=== PATIENT | female | born 1955 | race Hispanic/Latino ===

== ENCOUNTER 2019-01-21 09:16 | Emergency (ER) | payer MEDICARE, OTHER ==
[~2019-01-21] VITALS: Ht 154.9 cm; Wt 77.1 kg
[~2019-01-21 09:16] MED LIST: AMBIEN; AMBIEN10 MG PO; BACTRIM; CLONIDINE; CLONIDINE HCL0.1 MG PO; DIAZEPAM5 MG PO; DIPHENOXYLATE-1 EACH PO; FENOFIBRATE67 MG PO; FENTANYL; GABAPENTIN400 MG PO; HYDROCODONE; LANTUS; METOPROLOL; NOVOLOG; PHENERGAN; PROMETHAZINE HC25 M1 PO; SERTRALINE HCL100 MG PO; TIZANIDINE HCL4 MG PO; ULTRAM50 MG PO; VISTARIL; VOLTAREN; XANAX; ZANAFLEX; ZOLOFT
--- OUTSIDE RECORDS SUMMARY | 2019-01-21 09:20 | XMS REPORT | Continuity of Care Document ---
Author Author [facility] Interface Address Unknown Phone Unavailable Problems Problem Status Onset Date Classification Date Reported Comments Source M54.14 - "RADICULOPATHY, THORACIC REGION Active 02/07/2017 MARCELA Perales LT AXILLA DEODORENT? (SEE CALLBACK FORM) Active 04/22/2013 [facility] ROUTINE SCREENING Active 04/07/2013 [facility] CIRRHOSIS Active 01/20/2013 [facility] CIRRHOSIS OF LIVER NOS Active [facility] Medications Medication Details Route Status Patient Instructions Ordering Provider Order Date Source Allergies, Adverse Reactions, Alerts Substance Category Reaction Severity Reaction type Status Date Reported Comments Source Immunizations Immunization Date Given Site Status Last Updated Comments Source Results Order Name Results Value Reference Range Date Interpretation Comments Source Spine Thoracic wo contrast MRI Spine Thoracic wo contrast MRI MRI thoracic spine without contrast 02/14/2017 3:42 PM CDT CLINICAL: Thoracic spine pain TECHNIQUE: Sagittal T1, sagittal T2 with fat saturation, axial T1 and axial T2 images were obtained. COMPARISON: No prior exam. FINDINGS: Mild levocurvature of the thoracic spine is present. T7-T8 and T8-T9 1 mm disc bulges are seen, without cord indentation. Several levels of mild facet arthrosis present in the upper to mid thoracic spine, more prominent on the right with several levels of mild right foraminal stenosis. The thoracic spinal cord signal is normal. IMPRESSION: 1. 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 No focal disc herniation. Normal thoracic cord signal. 02/14/2017 - - Read by: Liam Chris MD Dictated Date/time: 02/15/17 08:27 Electronically Signed by: Liam Chris MD 02/15/17 08:33 FINAL REPORT RAMIREZ Perales Knee 3 views DX Knee 3 views DX EXAMINATION: Left knee series HISTORY: S83.92XA Sprain of unspecified site of left knee, initial encounter; left knee pain; left knee arthritis; left knee effusion FINDINGS: 3 views of the left knee are performed without comparison. There are no fractures. There is mild medial compartment joint space narrowing. The lateral and patellofemoral joint spaces are normal. There is a small knee effusion. IMPRESSION: 1. Mild medial compartment joint space narrowing of the left knee with a small left knee effusion. 12/24/2016 - - Read by: Mike Dolan MD Dictated Date/time: 12/24/16 14:01 Electronically Signed by: Mike Dolan MD 12/24/16 14:02 FINAL REPORT [facility] [place] Digital Mammo Screening Audrey MA Digital Mammo Screening Audrey MA - DIGITAL MAMMO SCREENING AUDREY MA BILATERAL DIGITAL SCREENING MAMMOGRAM WITH CAD: 04/17/2013 CLINICAL: Other Screening Mammogram. Current study was evaluated with a Computer Aided Detection (CAD) system. Exam is read without the benefit of comparison films. Patient is unsure and/or cannot remember where and/or when her prior exam(s) was performed. The tissue of both breasts is predominantly fatty. There are benign appearing calcifications in both breasts. There also is a benign appearing density in the right breast. Additionally there are benign appearing lymph nodes in the right breast. There also is a benign appearing intramammary node in the left breast. Additionally there are benign appearing densities in the left breast. No significant masses, calcifications, or other findings are seen in either breast. IMPRESSION: BENIGN There is no mammographic evidence of malignancy. A screening mammogram in one year is recommended. SUMMARY: Prior mammograms would be of added benefit to document group home stability. This aids in establishing benignity. The patient should make additional efforts to locate her prior exams. An addendum will be made if additional films are provided. SL: 13. Malachi jeter/:04/29/2013 10:16:57 Channel Sales Manager: Brittney Medley [facility] letter sent: Bilateral Benign Mammogram BI-RADS: 2 Benign 04/17/2013 - - Read by: Malachi Nicole Dictated Date/time: 04/29/13 10:16 Electronically Signed by: Malachi Nicloe MD 04/29/13 10:16 FINAL REPORT [facility] Pel[facility] with Pelvis Transvaginal US Pelvis with Pelvis Transvaginal US Pelvic ultrasound. COMPARISON: No priors. TECHNIQUE: Multiple static transabdominal images of the pelvis are submitted for review. FINDINGS: The uterus measures approximately 8 cm in the sagittal length. No focal masses are evident on the transabdominal study. Neither ovary is optimally visualized on the transabdominal study. The bladder is grossly unremarkable in appearance. TRANSVAGINAL ULTRASOUND: TECHNIQUE: Multiple static transvaginal images of the pelvis are submitted for review. FINDINGS: At least 3 intramural fibroids are visualized ranging in is from 1.3 cm to 2.7 cm. Their located anteriorly and posteriorly in the body of the uterus. The endometrial stripe measures 8 mm. The right ovary measures 2.6 x 1.2 x 1.7 cm in size, and the left ovary measures 2.5 x 1.9 x 1.8 cm in size. Ovary is not well demonstrated. No free fluid is present in the cul-de-sac. IMPRESSION: Multiple small intramural fibroids are visualized in the uterus. Limited evaluation of left ovary. No other significant sonographic abnormality is noted. SL:04/17/2013 - - Read by: To Escamilla Dictated Date/time: 04/17/13 16:56 Electronically Signed by: To Escamilla MD 04/17/13 17:00 FINAL REPORT [facility] complete US Abdomen complete US PROCEDURE: Complete abdominal ultrasound. INDICATION: cirrhosis. COMPARISON: [None]. FINDINGS: The pancreas is not visualized in its entirety. There is no mass lesion in the visualized pancreas. The liver is enlarged measuring 19.8 cm. The liver is heterogeneous in echotexture with nodular contour. This lowers the sensitivity for diagnostic evaluation of hepatic mass. Nonvisualization of the gallbladder presumably post cholecystectomy. The common bile duct measures [4.0] mm in diameter. There is no stone visualized in the common bile duct. The right kidney measures 9.8 cm x 4.8 cm x 4.5 cm. The left kidney measures 11.1 cm x 6.0 cm x 4.2 cm. There is no mass lesion or hydronephrosis in either kidney . The spleen has normal echogenicity without any mass lesion. The spleen measures 10.5 cm. There is no free fluid visualized. The visualized abdominal aorta and inferior vena cava are unremarkable. IMPRESSION: 1. Presumed post cholecystectomy. Grossly normal common bile duct. 2. Hepatocellular disease likely cirrhosis. SL: 13 01/30/2013 - - Read by: Damien Estrada Dictated Date/time: 01/30/13 14:17 Electronically Signed by: Damien Estrada MD 01/30/13 14:19 FINAL REPORT [facility] Vital Signs Vital Sign Value Date Comments Source Encounters Location Location Details Encounter Type Encounter Number Reason For Visit Attending Provider ADM Date DC Date Status Source [facility] Outpatient [id number] CIRRHOSIS REED ROCHADAD 01/30/2013 01/30/2013 Active [facility] Outpatient [id number] ROUTINE SCREENING KAELA CARVER 04/17/2013 04/17/2013 Active [facility] [place] [facility] [id number] Hector Kim 12/24/2016 12/25/2016 [facility] [place] [facility] [place] [facility] [id number] Serenity Benton II 02/14/2017 02/15/2017 [facility] [place] [facility] Outpatient [id number] LT AXILLA DEODORENT? (SEE CALLBACK FORM) KAELA CARVER Cancel [facility] Procedures Procedure Code Date Perfomer Comments Source
--- OUTSIDE RECORDS SUMMARY | 2019-01-21 09:20 | XMS REPORT | Summary of Care ---
Author Author [facility] [place] Organization [facility] [place] Address Unknown Phone Unavailable Encounter [facility] Encntr_alias(FIN) [id number] Date(s): 02/14/17 - 02/14/17 [facility] [place] [address] [phone] Discharge Disposition: Home or Self Care Attending Physician: Serenity Gaytan MD Vital Signs No data available for this section Problem List No data available for this section Allergies, Adverse Reactions, Alerts No data available for this section Medications No data available for this section Results No data available for this section Immunizations No data available for this section Procedures No data available for this section Social History No data available for this section Assessment and Plan No data available for this section
--- OUTSIDE RECORDS SUMMARY | 2019-01-21 09:20 | XMS REPORT | Summary of Care ---
Author Author [facility] - [place] Organization [facility] [place] Address Unknown Phone Unavailable Encounter [facility] Encntr_alias(FIN) [id number] Date(s): 12/24/16 - 12/24/16 [facility] Outpatient Imaging - [place] [address] [place] [phone] Discharge Disposition: Home or Self Care Attending Physician: Hector Kim MD Vital Signs No data available for [...]
--- OUTSIDE RECORDS SUMMARY | 2019-01-21 09:21 | XMS REPORT ---
[facility] Address Unknown Phone Unavailable Care Team Providers Care Cathead Operator Name Role Phone Unavailable Unavailable Payers Payer Name Policy Type Policy Number Effective Date Expiration Date Problems This patient has no known problems. Allergies, Adverse Reactions, Alerts Allergy Name Allergy Type Status Severity Reaction(s) Onset Date Inactive Date Treating Clinician Comments NSAIDS (Non-Steroidal Anti-Inflamma DA Active U 2019-01-08 00:00:00 iodine DA Active HI 2019-01-08 00:00:00 divalproex sodium DA Active U 2019-01-08 00:00:00 methocarbamol DA Active HI 2019-01-08 00:00:00 baclofen DA Active HI 2019-01-08 00:00:00 gabapentin DA Active U 2019-01-08 00:00:00 promethazine DA Active 2019-01-08 00:00:00 methylphenidate DA Active HI 2019-01-08 00:00:00 cyclobenzaprine DA Active U 2019-01-08 00:00:00 ondansetron DA Active U 2019-01-08 00:00:00 pregabalin DA Active U 2019-01-08 00:00:00 promethazine DA Active SV 2018-09-07 00:00:00 NSAIDS (Non-Steroidal Anti-Inflamma DA Active U 2018-09-04 00:00:00 iodine DA Active MO 2018-09-04 00:00:00 divalproex sodium DA Active U 2018-09-04 00:00:00 methocarbamol DA Active MO 2018-09-04 00:00:00 baclofen DA Active MO 2018-09-04 00:00:00 gabapentin DA Active U 2018-09-04 00:00:00 methylphenidate DA Active MO 2018-09-04 00:00:00 cyclobenzaprine DA Active U 2018-09-04 00:00:00 ondansetron DA Active U 2018-09-04 00:00:00 pregabalin DA Active U 2018-09-04 00:00:00 NSAIDS (Non-Steroidal Anti-Inflamma DA Active U 2018-04-13 00:00:00 iodine DA Active MO 2018-04-13 00:00:00 divalproex sodium DA Active U 2018-04-13 00:00:00 methocarbamol DA Active MO 2018-04-13 00:00:00 baclofen DA Active MO 2018-04-13 00:00:00 gabapentin DA Active U 2018-04-13 00:00:00 methylphenidate DA Active MO 2018-04-13 00:00:00 ondansetron DA Active U 2018-04-13 00:00:00 pregabalin DA Active U 2018-04-13 00:00:00 Medications This patient has no known medications. Results Test Description Test Time Test Comments Text Results Atomic Results Result Comments BASIC METABOLIC PANEL 2019-01-08 21:20:00 SODIUM (test code=NA) 142 mmol/L 136-145 POTASSIUM (test code=K) 3.3 mmol/L 3.5-5.1 CHLORIDE (test code=CL) 107.0 mmol/L 98-107 CARBON DIOXIDE (test code=CO2) 27.0 mmol/L 21-32 ANION GAP (test code=GAP) 11.3 10-20 GLUCOSE (test code=GLU) 80 mg/dL 74-106 BLOOD UREA NITROGEN (test code=BUN) 6 mg/dL 7-18 GLOMERULAR FILTRATION RATE (test code=GFR) > 60 mL/min >=60 Estimated GFR by using Modified MDRD formula.Chronic kidney disease is defined as either kidney damageor GFR <60 mL/min/1.73 m2 for >3 months. CREATININE (test code=CREAT) 0.80 mg/dL 0.55-1.02 Note change in reference range due to change in reagent. BUN/CREATININE RATIO (test code=BUN/CREA) 7.5 10-20 CALCIUM (test code=CA) 8.6 mg/dL 8.5-10.1 [id number] 21:20:00* Test Item Value Reference Range Comments TROPONIN-I (test code=TROPI) <0.015 ng/mL 0-0.045 BASIC METABOLIC [id number] 21:18:00* Test Item Value Reference Range Comments SODIUM (test code=NA) 142 mmol/L 136-145 POTASSIUM (test code=K) 3.3 mmol/L 3.5-5.1 CHLORIDE (test code=CL) 107.0 mmol/L 98-107 CARBON DIOXIDE (test code=CO2) mmol/L 21-32 ANION GAP (test code=GAP) 10-20 GLUCOSE (test code=GLU) mg/dL 74-106 BLOOD UREA NITROGEN (test code=BUN) mg/dL 7-18 GLOMERULAR FILTRATION RATE (test code=GFR) mL/min >=60 CREATININE (test code=CREAT) mg/dL 0.55-1.02 BUN/CREATININE RATIO (test code=BUN/CREA) 10-20 CALCIUM (test code=CA) mg/dL 8.5-10.1 [id number] 21:18:00* Test Item Value Reference Range Comments TROPONIN-I (test code=TROPI) ng/mL 0-0.045 CBC W/O [id number] 21:06:00* Test Item Value Reference Range Comments WHITE BLOOD CELL (test code=WBC) 7.7 K/mm3 4.5-12.5 RED BLOOD CELL (test code=RBC) 3.69 mill/mm3 3.7-5.2 HEMOGLOBIN (test code=HGB) 10.6 gram/dL 11.5-15.5 HEMATOCRIT (test code=HCT) 34.2 % 36.0-46.0 MEAN CELL VOLUME (test code=MCV) 92.7 fL 80-98 MEAN CELL HGB (test code=MCH) 28.7 picogram 27.0-33.0 MEAN CELL HGB CONCETRATION (test code=MCHC) 31.0 gram/dL 33.0-36.0 RED CELL DISTRIBUTION WIDTH (test code=RDW) 15.0 % 11.6-16.2 PLATELET COUNT (test code=PLT) 111 K/mm3 150-450 MEAN PLATELET VOLUME (test code=MPV) 11.3 fL 6.7-11.0 TROPONIN I [id number] 21:02:00* Test Item Value Reference Range Comments TROPONIN I RAPID (test code=TROPIRAP) 0.01 ng/mL <0.08 Please Note New Reference Range 0.00-0.079 ng/mL - Negative>or=0.08 ng/mL - Positive The use of serial sampling and testing protocol is arecommended practice.An elevated troponin level alone is often not sufficient fordiagnosis of myocardial infarction. Troponin results obtained by different assays may vary.Evaluation of the extent of myocardial damage based onincrease of troponin would be valid only if similarmethodology is used. - XR CHEST 1 [id number] 20:12:00 FAX: Jac Willoughby MD [phone] [place]: St: PRE FAX: Hector Kim [facility] [phone] Name: YUMI HANLEY [facility] : 1955 Age/S: 63/F [address] Unit #: [id number] Loc: [place] [address] Phys: Jac Willoughby MD Acct: [id number] Dis Date: Status: PRE ER PHONE #: [phone] Exam Date: 01/08/2019 0759 FAX #: [phone] Reason: fall EXAMS: CPT CODE: [id number] XR CHEST 1 V [id number] REASON FOR EXAM: fall EXAM ORDER DATE: 01/08/2019 7:39 PM Ordering M.DTomas: Jac Willoughby MD PROCEDURE: - XR CHEST 1 V COMPARISON: FINDINGS: Portable AP frontal view of the chest obtained at 7:57 PM shows clear lungs without evidence of consolidation. There is no evidence of effusion. The heart size is minimally enlarged. Pulmonary vasculatures are unremarkable. IMPRESSION: No active disease. at 2011 Reported and signed by: Jean Sánchez M.D. CC: Jac Willoughby MD; Hector Kim Technologist: ESTEPHANIE RAVI; Lars Fonseca, RT(R Trnscrd Date/Time/By: 01/08/2019 (2011) : By: Brandi.VTL PAGE 1 Signed Report - XR RIBS UNI 2 V LT 2019-01-08 20:11:00 FAX: Jac Willoughby MD [phone] [place]: St: PRE FAX: Hector Kim [phone] Name: YUMI HANLEY [facility] : 1955 Age/S: 63/F [address] Unit #: [id number] Loc: [place] [address] Phys: Jac Willoughby MD Acct: [id number] Dis Date: Status: PRE ER PHONE #: [phone] Exam Date: 01/08/2019 0759 FAX #: [phone] Reason: fall EXAMS: CPT CODE: [id number] XR RIBS UNI 2 V LT [address]167 REASON FOR EXAM: fall EXAM ORDER DATE: 01/08/2019 7:39 PM Ordering Prabhu: Jac Willoughby MD PROCEDURE: - XR RIBS UNI 2 V LT FINDINGS: 2 views of the frontal view of the chest and left ribs were obtained. The osseous structures are unremarkable in size and shape. No evidence of pneumothorax or hemothorax. No evidence of displaced rib fracture. IMPRESSION: Unremarkable left ribs at 2011 Reported and signed by: Jean Sánchez M.D. CC: Jac Willoughby MD; Hector Kim Technologist: ESTEPHANIE RAVI; RENETTA HaleyR Trnscrd Date/Time/By: 01/08/2019 (2010) : By: AnayeliVTL Orig Print D/T: S: 01/08/2019 (2013) PAGE 1 Signed Report - CT ABD PELVIS W/O [id number] 19:21:00 Name: YUMI HANLEY [facility] : 1955 Age/S: 63 / F [address] Unit #: [id number] Loc: [place] [address] Phys: MIGUEL DAVID MD Acct: [id number] Di s Date: Status: REG ER PHONE #: [phone] Exam Date: 12/28/2018 190 FAX #: [phone] Reason: abdominal pain, Hx of IBD EXAMS: CPT CODE: [id number] CT ABD PELVIS W/O CONT [id number] EXAM: CT of the abdomen a nd pelvis without contrast; INFORMATION: Abdominal pain, history o f inflammatory bowel disease. TECHNIQUE AND FINDINGS: CT dos e reduction protocol; 5 mm cuts through the abdomen and pelvis without con trast. No evidence of inflammatory changes of the colon or small bowel. The liver is of normal size. It shows a micronodular surface. No foc al lesions. The gallbladder is not seen; no biliary dilatation. Panc reas, spleen and kidneys unremarkable. No hydronephrosis or stones. Tubular nodular structures are seen in the region of the left adrenal gla nd is suspected this is a combination of a small adrenal nodule and probab le varices, potentially with spontaneous splenorenal shunt. Calcified plaq ues in the abdominal aorta and iliac arteries. No pelvic mass lesions No evidence of ascites or other abnormal fluid collections. Lung bases a re clear. IMPRESSION: 1. No acute abdominal or pelvic a bnormalities. 2. 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 3. Prob able small left adrenal gland, difficult to distinguish from a varix wit hout the benefit of IV contrast. 4. No evidence of active inflammatory bowel disease. at 1921 Reported and signed by: Lambert Borges M.D. CC: CHERIE DAVID; Hector Kim Technologist:Jeronimo León RT(R)( CT) CTDI: DLP: Trnscb Date/Time: 12/28/2018 (1920) AnayeliGRW Orig Print D/T: S: 12/28/2018 (1923) CTDI: DLP: PAGE 1 Signed Report C REACTIVE [id number] 18:43:00* Test Item Value Reference Range Comments C REACTIVE PROTEIN (test code=CRP) <0.29 mg/dL 0-0.3 BASIC METABOLIC [id number] 17:39:00* Test Item Value Reference Range Comments SODIUM (test code=NA) 141 mmol/L 136-145 POTASSIUM (test code=K) 3.8 mmol/L 3.5-5.1 CHLORIDE (test code=CL) 108.0 mmol/L 98-107 CARBON DIOXIDE (test code=CO2) 23.0 mmol/L 21-32 ANION GAP (test code=GAP) 13.8 10-20 GLUCOSE (test code=GLU) 129 mg/dL 74-106 BLOOD UREA NITROGEN (test code=BUN) 9 mg/dL 7-18 GLOMERULAR FILTRATION RATE (test code=GFR) 56 mL/min >=60 Estimated GFR by using Modified MDRD formula.Chronic kidney disease is defined as either kidney damageor GFR <60 mL/min/1.73 m2 for >3 months. CREATININE (test code=CREAT) 1.00 mg/dL 0.55-1.02 Note change in reference range due to change in reagent. BUN/CREATININE RATIO (test code=BUN/CREA) 9.0 10-20 CALCIUM (test code=CA) 8.6 mg/dL 8.5-10.1 HEPATIC FUNCTION [id number] 17:39:00* Test Item Value Reference Range Comments TOTAL PROTEIN (test code=PROT) 7.4 gram/dL 6.4-8.2 ALBUMIN (test code=ALB) 3.3 g/dL 3.4-5.0 GLOBULIN (test code=GLOB) 4.1 gram/dL 2.7-4.2 ALBUMIN/GLOBULIN RATIO (test code=A/G) 0.8 0.75-1.50 BILIRUBIN TOTAL (test code=BILT) 0.40 mg/dL 0.0-1.0 BILIRUBIN DIRECT (test code=BILD) 0.09 mg/dL 0.0-0.20 SGOT/AST (test code=AST) 35 IUnit/L 15-37 SGPT/ALT (test code=ALT) 23 IUnit/L 12-78 ALKALINE PHOSPHATASE TOTAL (test code=ALKP) 156 IUnit/L 45-117 Note change in reference range due to change in reagent. [id number] 17:39:00* Test Item Value Reference Range Comments LIPASE (test code=LIP) 340 U/L 73.0-393.0 [id number] 17:39:00* Test Item Value Reference Range Comments TROPONIN-I (test code=TROPI) 0.016 ng/mL 0-0.045 BASIC METABOLIC [id number] 17:21:00* Test Item Value Reference Range Comments SODIUM (test code=NA) 141 mmol/L 136-145 POTASSIUM (test code=K) 3.8 mmol/L 3.5-5.1 CHLORIDE (test code=CL) 108.0 mmol/L 98-107 CARBON DIOXIDE (test code=CO2) mmol/L 21-32 ANION GAP (test code=GAP) 10-20 GLUCOSE (test code=GLU) mg/dL 74-106 BLOOD UREA NITROGEN (test code=BUN) mg/dL 7-18 GLOMERULAR FILTRATION RATE (test code=GFR) mL/min >=60 CREATININE (test code=CREAT) mg/dL 0.55-1.02 BUN/CREATININE RATIO (test code=BUN/CREA) 10-20 CALCIUM (test code=CA) mg/dL 8.5-10.1 HEPATIC FUNCTION [id number] 17:21:00* Test Item Value Reference Range Comments TOTAL PROTEIN (test code=PROT) gram/dL 6.4-8.2 ALBUMIN (test code=ALB) g/dL 3.4-5.0 GLOBULIN (test code=GLOB) gram/dL 2.7-4.2 ALBUMIN/GLOBULIN RATIO (test code=A/G) 0.75-1.50 BILIRUBIN TOTAL (test code=BILT) mg/dL 0.0-1.0 BILIRUBIN DIRECT (test code=BILD) mg/dL 0.0-0.20 SGOT/AST (test code=AST) IUnit/L 15-37 SGPT/ALT (test code=ALT) IUnit/L 12-78 ALKALINE PHOSPHATASE TOTAL (test code=ALKP) IUnit/L 45-117 [id number] 17:21:00* Test Item Value Reference Range Comments LIPASE (test code=LIP) U/L 73.0-393.0 [id number] 17:21:00* Test Item Value Reference Range Comments TROPONIN-I (test code=TROPI) ng/mL 0-0.045 LACTIC [id number] 17:21:00* Test Item Value Reference Range Comments LACTIC ACID (test code=LACT) 1.5 mmol/L 0.4-1.9 PROTHROMBIN [id number] 17:02:00* Test Item Value Reference Range Comments PROTHROMBIN TIME PATIENT (test code=PTP) 11.6 seconds 9.0-14.0 INTERNATIONAL NORMAL RATIO (test code=INR) 1.0 0.8-1.2 The therapeutic range for oral anticoagulant therapy formost indications is an international normalized ratio (INR)of between 2.0 and 3.0. The recommended therapeutic INRrange for various clinical situations is listed below: Clinical Situation INR range Pulmonary e mbolism treatment (2.0-3.0)Venous thrombosis treatmentVenous thrombosis prophylaxis (high risk surgery)Prevention of systemic embolism from: Acute myocardial infarction Valvular heart disease Atrial fibrillation Mechanical prosthetic heart valves (2.5-3.5) IS PATIENT ON ANTICOAGULANTS? NTHROMBOPLASTIN TIME [id number] 17:02:00* Test Item Value Reference Range Comments THROMBOPLASTIN TIME PARTIAL (test code=PTT) 33.0 seconds 25.0-36.5 IS PATIENT ON ANTICOAGULANTS? NCBC W/O [id number] 16:49:00* Test Item Value Reference Range Comments WHITE BLOOD CELL (test code=WBC) 10.0 K/mm3 4.5-12.5 RED BLOOD CELL (test code=RBC) 4.15 mill/mm3 3.7-5.2 HEMOGLOBIN (test code=HGB) 12.0 gram/dL 11.5-15.5 HEMATOCRIT (test code=HCT) 38.5 % 36.0-46.0 MEAN CELL VOLUME (test code=MCV) 92.8 fL 80-98 MEAN CELL HGB (test code=MCH) 28.9 picogram 27.0-33.0 MEAN CELL HGB CONCETRATION (test code=MCHC) 31.2 gram/dL 33.0-36.0 RED CELL DISTRIBUTION WIDTH (test code=RDW) 15.4 % 11.6-16.2 PLATELET COUNT (test code=PLT) 211 K/mm3 150-450 MEAN PLATELET VOLUME (test code=MPV) 11.5 fL 6.7-11.0 URINALYSIS [id number] 16:12:00* Test Item Value Reference Range Comments UA COLOR (test code=COLU) Light-Yellow YELLOW UA APPEARANCE (test code=APPU) CLEAR CLEAR UA GLUCOSE DIPSTICK (test code=DGLUU) 30 (Trace) mg/dL NEGATIVE UA BILIRUBIN DIPSTICK (test code=BILU) NEGATIVE mg/dL NEGATIVE UA KETONE DIPSTICK (test code=KETU) NEGATIVE mg/dL NEGATIVE UA SPECIFIC GRAVITY (test code=SGU) 1.004 1.001-1.035 UA BLOOD DIPSTICK (test code=LACEY) Negative mg/dL NEGATIVE UA PH DIPSTICK (test code=PEGGY) 6.0 5.0-8.0 UA PROTEIN DIPSTICK (test code=PROU) NEGATIVE mg/dL NEGATIVE UA UROBILINIOGEN DIPSTICK (test code=URO) Normal mg/dL NEGATIVE UA NITRITE DIPSTICK (test code=DOMENICA) NEGATIVE NEGATIVE UA LEUKOCYTE ESTERASE W REFLEX (test code=LEUUR) 250 [place]/uL Socorro/uL NEGATIVE UA WBC (test code=WBCU) 11-20 per HPF 0-5 UA RBC (test code=RBCU) 0-2 #/HPF 0-5 UA EPITHELIAL CELLS (test code=EPIU) MOD per HPF FEW UA BACTERIA (test code=BACU) FEW #/HPF NONE UA RENAL CELLS (test code=FITO) 3-5 #/HPF 0-5 Urine Source? Clean CatchURINALYSIS [id number] 16:07:00* Test Item Value Reference Range Comments UA COLOR (test code=COLU) Light-Yellow YELLOW UA APPEARANCE (test code=APPU) CLEAR CLEAR UA GLUCOSE DIPSTICK (test code=DGLUU) 30 (Trace) mg/dL NEGATIVE UA BILIRUBIN DIPSTICK (test code=BILU) NEGATIVE mg/dL NEGATIVE UA KETONE DIPSTICK (test code=KETU) NEGATIVE mg/dL NEGATIVE UA SPECIFIC GRAVITY (test code=SGU) 1.004 1.001-1.035 UA BLOOD DIPSTICK (test code=LACEY) Negative mg/dL NEGATIVE UA PH DIPSTICK (test code=PEGGY) 6.0 5.0-8.0 UA PROTEIN DIPSTICK (test code=PROU) NEGATIVE mg/dL NEGATIVE UA UROBILINIOGEN DIPSTICK (test code=URO) Normal mg/dL NEGATIVE UA NITRITE DIPSTICK (test code=DOMENICA) NEGATIVE NEGATIVE UA LEUKOCYTE ESTERASE W REFLEX (test code=LEUUR) 250 [place]/uL Socorro/uL NEGATIVE UA WBC (test code=WBCU) per HPF 0-5 UA RBC (test code=RBCU) per HPF 0-5 UA EPITHELIAL CELLS (test code=EPIU) per HPF Few UA BACTERIA (test code=BACU) per HPF NONE Urine Source? Clean Catch- XR CHEST 1 [id number] 15:23:00 FAX: CHERIE DAVID MD [place]: B St: [facility] FAX: Hector Kim [facility] [phone] Name: YUMI HANLEY [facility] : 1955 Age/S: 63/F [address] Unit #: [id number] Loc: [place] [address] Phys: CHERIE DAVID MD Acct: [id number] Dis Date: Status: REG ER PHONE #: [phone] Exam Date: 12/28/2018 1513 FAX #: [phone] Reason: Abdominal Pain EXAMS: CPT CODE: [id number] XR CHEST 1 V [id number] EXAM: Chest X-ray, 1 view; CLINICAL HISTORY: Abdominal pain; FINDINGS: The lungs are clear, no infiltrates, no edema; no effusions; no pneumothorax; On today's study the heart is normal in size; otherwise, no significant change compared with a study from June 24, 2018. IMPRESSION: Normal chest x-ray. at 1523 Reported and signed by: Lambert Borges M.D. CC: CHERIE KAUR MD; Hector Kim Technologist: Carol Soares RT(R); JULIA DÍAZ RT(R) Trnscrd Date/Time/By: 12/28/2018 (1525) : By: Brandi.GRW Orig Print D/T: S: 12/28/2018 (9940) PAGE 1 Signed Report CBC W/AUTO [id number] 14:15:00* Test Item Value Reference Range Comments WHITE BLOOD CELL (test code=WBC) 9.8 K/mm3 4.5-12.5 RED BLOOD CELL (test code=RBC) 4.07 mill/mm3 3.7-5.2 HEMOGLOBIN (test code=HGB) 11.5 gram/dL 11.5-15.5 HEMATOCRIT (test code=HCT) 38.9 % 36.0-46.0 MEAN CELL VOLUME (test code=MCV) 95.6 fL 80-98 MEAN CELL HGB (test code=MCH) 28.3 picogram 27.0-33.0 MEAN CELL HGB CONCETRATION (test code=MCHC) 29.6 gram/dL 33.0-36.0 RED CELL DISTRIBUTION WIDTH (test code=RDW) 15.3 % 11.6-16.2 RED CELL DISTRIBUTION WIDTH SD (test code=RDW-SD) 53.6 fL 37.0-51.0 PLATELET COUNT (test code=PLT) 124 K/mm3 150-450 MEAN PLATELET VOLUME (test code=MPV) 11.5 fL 6.7-11.0 NEUTROPHIL % (test code=NT%) 39.3 % 39.0-69.0 IMMATURE GRANULOCYTE % (test code=IG%) 0.1 % 0.0-5.0 LYMPHOCYTE % (test code=LY%) 49.6 % 25.0-55.0 MONOCYTE % (test code=MO%) 7.1 % 0.0-10.0 EOSINOPHIL % (test code=EO%) 3.3 % 0.0-5.0 BASOPHIL % (test code=BA%) 0.6 % 0.0-1.0 NUCLEATED RBC % (test code=NRBC%) 0.0 % 0-0 NEUTROPHIL # (test code=NT#) 3.85 K/mm3 1.8-7.7 IMMATURE GRANULOCYTE # (test code=IG#) 0.01 x10 3/uL 0-0.03 LYMPHOCYTE # (test code=LY#) 4.85 K/mm3 1.0-5.0 MONOCYTE # (test code=MO#) 0.69 K/mm3 0-0.8 EOSINOPHIL # (test code=EO#) 0.32 K/mm3 0.0-0.5 BASOPHIL # (test code=BA#) 0.06 K/mm3 0.0-0.2 NUCLEATED RBC # (test code=NRBC#) 0.00 K/mm3 0.0-0.1 MANUAL DIFF REQUIRED (test code=MDIFF) NO, ONLY SCAN NEEDED DIFFERENTIAL [id number] 14:15:00* Test Item Value Reference Range Comments STAIN ACCEPTABILITY (test code=STN ACCEPTABLE) STAIN ACCEPTABLE HYPOCHROMIA (test code=HYPO) 1+ PLATELET ESTIMATE (test code=PLTEST) SLIGHTLY DECREASED PLATELET MORPHOLOGY (test code=PLTMORPH) NORMAL [id number] 10:02:00* Test Item Value Reference Range Comments GLUBED (test code=GLUBED) 159 mg/dL 74-106 Performed by certified power generating plant operator at [facility] CBC W/AUTO [id number] 09:47:00* Test Item Value Reference Range Comments WHITE BLOOD CELL (test code=WBC) 9.8 K/mm3 4.5-12.5 RED BLOOD CELL (test code=RBC) 4.07 mill/mm3 3.7-5.2 HEMOGLOBIN (test code=HGB) 11.5 gram/dL 11.5-15.5 HEMATOCRIT (test code=HCT) 38.9 % 36.0-46.0 MEAN CELL VOLUME (test code=MCV) 95.6 fL 80-98 MEAN CELL HGB (test code=MCH) 28.3 picogram 27.0-33.0 MEAN CELL HGB CONCETRATION (test code=MCHC) 29.6 gram/dL 33.0-36.0 RED CELL DISTRIBUTION WIDTH (test code=RDW) 15.3 % 11.6-16.2 RED CELL DISTRIBUTION WIDTH SD (test code=RDW-SD) 53.6 fL 37.0-51.0 PLATELET COUNT (test code=PLT) 124 K/mm3 150-450 MEAN PLATELET VOLUME (test code=MPV) 11.5 fL 6.7-11.0 NEUTROPHIL % (test code=NT%) 39.3 % 39.0-69.0 IMMATURE GRANULOCYTE % (test code=IG%) 0.1 % 0.0-5.0 LYMPHOCYTE % (test code=LY%) 49.6 % 25.0-55.0 MONOCYTE % (test code=MO%) 7.1 % 0.0-10.0 EOSINOPHIL % (test code=EO%) 3.3 % 0.0-5.0 BASOPHIL % (test code=BA%) 0.6 % 0.0-1.0 NUCLEATED RBC % (test code=NRBC%) 0.0 % 0-0 NEUTROPHIL # (test code=NT#) 3.85 K/mm3 1.8-7.7 IMMATURE GRANULOCYTE # (test code=IG#) 0.01 x10 3/uL 0-0.03 LYMPHOCYTE # (test code=LY#) 4.85 K/mm3 1.0-5.0 MONOCYTE # (test code=MO#) 0.69 K/mm3 0-0.8 EOSINOPHIL # (test code=EO#) 0.32 K/mm3 0.0-0.5 BASOPHIL # (test code=BA#) 0.06 K/mm3 0.0-0.2 NUCLEATED RBC # (test code=NRBC#) 0.00 K/mm3 0.0-0.1 MANUAL DIFF REQUIRED (test code=MDIFF) NO, ONLY SCAN NEEDED DIFFERENTIAL [id number] 09:47:00* Test Item Value Reference Range Comments STAIN ACCEPTABILITY (test code=STN ACCEPTABLE) MORPHOLOGY COMMENT (test code=MOC) PLATELET ESTIMATE (test code=PLTEST) PLATELET MORPHOLOGY (test code=PLTMORPH) CBC W/AUTO [id number] 09:43:00* Test Item Value Reference Range Comments WHITE BLOOD CELL (test code=WBC) 9.8 K/mm3 4.5-12.5 RED BLOOD CELL (test code=RBC) 4.07 mill/mm3 3.7-5.2 HEMOGLOBIN (test code=HGB) 11.5 gram/dL 11.5-15.5 HEMATOCRIT (test code=HCT) 38.9 % 36.0-46.0 MEAN CELL VOLUME (test code=MCV) 95.6 fL 80-98 MEAN CELL HGB (test code=MCH) 28.3 picogram 27.0-33.0 MEAN CELL HGB CONCETRATION (test code=MCHC) 29.6 gram/dL 33.0-36.0 RED CELL DISTRIBUTION WIDTH (test code=RDW) 15.3 % 11.6-16.2 RED CELL DISTRIBUTION WIDTH SD (test code=RDW-SD) 53.6 fL 37.0-51.0 PLATELET COUNT (test code=PLT) 124 K/mm3 150-450 MEAN PLATELET VOLUME (test code=MPV) 11.5 fL 6.7-11.0 NEUTROPHIL % (test code=NT%) 39.3 % 39.0-69.0 IMMATURE GRANULOCYTE % (test code=IG%) 0.1 % 0.0-5.0 LYMPHOCYTE % (test code=LY%) 49.6 % 25.0-55.0 MONOCYTE % (test code=MO%) 7.1 % 0.0-10.0 EOSINOPHIL % (test code=EO%) 3.3 % 0.0-5.0 BASOPHIL % (test code=BA%) 0.6 % 0.0-1.0 NUCLEATED RBC % (test code=NRBC%) 0.0 % 0-0 NEUTROPHIL # (test code=NT#) 3.85 K/mm3 1.8-7.7 IMMATURE GRANULOCYTE # (test code=IG#) 0.01 x10 3/uL 0-0.03 LYMPHOCYTE # (test code=LY#) 4.85 K/mm3 1.0-5.0 MONOCYTE # (test code=MO#) 0.69 K/mm3 0-0.8 EOSINOPHIL # (test code=EO#) 0.32 K/mm3 0.0-0.5 BASOPHIL # (test code=BA#) 0.06 K/mm3 0.0-0.2 NUCLEATED RBC # (test code=NRBC#) 0.00 K/mm3 0.0-0.1 MANUAL DIFF REQUIRED (test code=MDIFF) NO, ONLY SCAN NEEDED DIFFERENTIAL [id number] 09:43:00* Test Item Value Reference Range Comments STAIN ACCEPTABILITY (test code=STN ACCEPTABLE) CABOT RINGS (test code=CAB) MORPHOLOGY COMMENT (test code=MOC) PLATELET ESTIMATE (test code=PLTEST) PLATELET MORPHOLOGY (test code=PLTMORPH) CBC W/AUTO [id number] 09:43:00* Test Item Value Reference Range Comments WHITE BLOOD CELL (test code=WBC) 9.8 K/mm3 4.5-12.5 RED BLOOD CELL (test code=RBC) 4.07 mill/mm3 3.7-5.2 HEMOGLOBIN (test code=HGB) 11.5 gram/dL 11.5-15.5 HEMATOCRIT (test code=HCT) 38.9 % 36.0-46.0 MEAN CELL VOLUME (test code=MCV) 95.6 fL 80-98 MEAN CELL HGB (test code=MCH) 28.3 picogram 27.0-33.0 MEAN CELL HGB CONCETRATION (test code=MCHC) 29.6 gram/dL 33.0-36.0 RED CELL DISTRIBUTION WIDTH (test code=RDW) 15.3 % 11.6-16.2 RED CELL DISTRIBUTION WIDTH SD (test code=RDW-SD) 53.6 fL 37.0-51.0 PLATELET COUNT (test code=PLT) 124 K/mm3 150-450 MEAN PLATELET VOLUME (test code=MPV) 11.5 fL 6.7-11.0 NEUTROPHIL % (test code=NT%) 39.3 % 39.0-69.0 IMMATURE GRANULOCYTE % (test code=IG%) 0.1 % 0.0-5.0 LYMPHOCYTE % (test code=LY%) 49.6 % 25.0-55.0 MONOCYTE % (test code=MO%) 7.1 % 0.0-10.0 EOSINOPHIL % (test code=EO%) 3.3 % 0.0-5.0 BASOPHIL % (test code=BA%) 0.6 % 0.0-1.0 NUCLEATED RBC % (test code=NRBC%) 0.0 % 0-0 NEUTROPHIL # (test code=NT#) 3.85 K/mm3 1.8-7.7 IMMATURE GRANULOCYTE # (test code=IG#) 0.01 x10 3/uL 0-0.03 LYMPHOCYTE # (test code=LY#) 4.85 K/mm3 1.0-5.0 MONOCYTE # (test code=MO#) 0.69 K/mm3 0-0.8 EOSINOPHIL # (test code=EO#) 0.32 K/mm3 0.0-0.5 BASOPHIL # (test code=BA#) 0.06 K/mm3 0.0-0.2 NUCLEATED RBC # (test code=NRBC#) 0.00 K/mm3 0.0-0.1 MANUAL DIFF REQUIRED (test code=MDIFF) NO, ONLY SCAN NEEDED DIFFERENTIAL [id number] 09:43:00* Test Item Value Reference Range Comments STAIN ACCEPTABILITY (test code=STN ACCEPTABLE) MORPHOLOGY COMMENT (test code=MOC) PLATELET ESTIMATE (test code=PLTEST) PLATELET MORPHOLOGY (test code=PLTMORPH) CBC W/AUTO [id number] 09:43:00* Test Item Value Reference Range Comments WHITE BLOOD CELL (test code=WBC) 9.8 K/mm3 4.5-12.5 RED BLOOD CELL (test code=RBC) 4.07 mill/mm3 3.7-5.2 HEMOGLOBIN (test code=HGB) 11.5 gram/dL 11.5-15.5 HEMATOCRIT (test code=HCT) 38.9 % 36.0-46.0 MEAN CELL VOLUME (test code=MCV) 95.6 fL 80-98 MEAN CELL HGB (test code=MCH) 28.3 picogram 27.0-33.0 MEAN CELL HGB CONCETRATION (test code=MCHC) 29.6 gram/dL 33.0-36.0 RED CELL DISTRIBUTION WIDTH (test code=RDW) 15.3 % 11.6-16.2 RED CELL DISTRIBUTION WIDTH SD (test code=RDW-SD) 53.6 fL 37.0-51.0 PLATELET COUNT (test code=PLT) 124 K/mm3 150-450 MEAN PLATELET VOLUME (test code=MPV) 11.5 fL 6.7-11.0 NEUTROPHIL % (test code=NT%) 39.3 % 39.0-69.0 IMMATURE GRANULOCYTE % (test code=IG%) 0.1 % 0.0-5.0 LYMPHOCYTE % (test code=LY%) 49.6 % 25.0-55.0 MONOCYTE % (test code=MO%) 7.1 % 0.0-10.0 EOSINOPHIL % (test code=EO%) 3.3 % 0.0-5.0 BASOPHIL % (test code=BA%) 0.6 % 0.0-1.0 NUCLEATED RBC % (test code=NRBC%) 0.0 % 0-0 NEUTROPHIL # (test code=NT#) 3.85 K/mm3 1.8-7.7 IMMATURE GRANULOCYTE # (test code=IG#) 0.01 x10 3/uL 0-0.03 LYMPHOCYTE # (test code=LY#) 4.85 K/mm3 1.0-5.0 MONOCYTE # (test code=MO#) 0.69 K/mm3 0-0.8 EOSINOPHIL # (test code=EO#) 0.32 K/mm3 0.0-0.5 BASOPHIL # (test code=BA#) 0.06 K/mm3 0.0-0.2 NUCLEATED RBC # (test code=NRBC#) 0.00 K/mm3 0.0-0.1 MANUAL DIFF REQUIRED (test code=MDIFF) NO, ONLY SCAN NEEDED DIFFERENTIAL [id number] 09:43:00* Test Item Value Reference Range Comments STAIN ACCEPTABILITY (test code=STN ACCEPTABLE) CABOT RINGS (test code=CAB) MORPHOLOGY COMMENT (test code=MOC) PLATELET ESTIMATE (test code=PLTEST) PLATELET MORPHOLOGY (test code=PLTMORPH) CBC W/AUTO [id number] 09:36:00* Test Item Value Reference Range Comments WHITE BLOOD CELL (test code=WBC) K/mm3 4.5-12.5 RED BLOOD CELL (test code=RBC) mill/mm3 3.7-5.2 HEMOGLOBIN (test code=HGB) 11.5 gram/dL 11.5-15.5 HEMATOCRIT (test code=HCT) 38.9 % 36.0-46.0 MEAN CELL VOLUME (test code=MCV) fL 80-98 MEAN CELL HGB (test code=MCH) picogram 27.0-33.0 MEAN CELL HGB CONCETRATION (test code=MCHC) gram/dL 33.0-36.0 RED CELL DISTRIBUTION WIDTH (test code=RDW) % 11.6-16.2 RED CELL DISTRIBUTION WIDTH SD (test code=RDW-SD) fL 37.0-51.0 PLATELET COUNT (test code=PLT) K/mm3 150-450 MEAN PLATELET VOLUME (test code=MPV) fL 6.7-11.0 NEUTROPHIL % (test code=NT%) % 39.0-69.0 IMMATURE GRANULOCYTE % (test code=IG%) % 0.0-5.0 LYMPHOCYTE % (test code=LY%) % 25.0-55.0 MONOCYTE % (test code=MO%) % 0.0-10.0 EOSINOPHIL % (test code=EO%) % 0.0-5.0 BASOPHIL % (test code=BA%) % 0.0-1.0 NEUTROPHIL # (test code=NT#) K/mm3 1.8-7.7 LYMPHOCYTE # (test code=LY#) K/mm3 1.0-5.0 MONOCYTE # (test code=MO#) K/mm3 0-0.8 EOSINOPHIL # (test code=EO#) K/mm3 0.0-0.5 BASOPHIL # (test code=BA#) K/mm3 0.0-0.2 COMPREHENSIVE METABOLIC [id number] 08:30:00* Test Item Value Reference Range Comments SODIUM (test code=NA) 140 mmol/L 136-145 POTASSIUM (test code=K) 4.2 mmol/L 3.5-5.1 CHLORIDE (test code=CL) 110.0 mmol/L 98-107 CARBON DIOXIDE (test code=CO2) 21.0 mmol/L 21-32 ANION GAP (test code=GAP) 13.2 10-20 GLUCOSE (test code=GLU) 100 mg/dL 74-106 BLOOD UREA NITROGEN (test code=BUN) 12 mg/dL 7-18 GLOMERULAR FILTRATION RATE (test code=GFR) > 60 mL/min >=60 Estimated GFR by using Modified MDRD formula.Chronic kidney disease is defined as either kidney damageor GFR <60 mL/min/1.73 m2 for >3 months. CREATININE (test code=CREAT) 0.90 mg/dL 0.55-1.02 Note change in reference range due to change in reagent. BUN/CREATININE RATIO (test code=BUN/CREA) 13.3 10-20 TOTAL PROTEIN (test code=PROT) 6.6 gram/dL 6.4-8.2 ALBUMIN (test code=ALB) 3.0 g/dL 3.4-5.0 GLOBULIN (test code=GLOB) 3.6 gram/dL 2.7-4.2 ALBUMIN/GLOBULIN RATIO (test code=A/G) 0.8 0.75-1.50 CALCIUM (test code=CA) 8.3 mg/dL 8.5-10.1 BILIRUBIN TOTAL (test code=BILT) 0.50 mg/dL 0.0-1.0 SGOT/AST (test code=AST) 46 IUnit/L 15-37 SGPT/ALT (test code=ALT) 18 IUnit/L 12-78 ALKALINE PHOSPHATASE TOTAL (test code=ALKP) 98 IUnit/L 45-117 Note change in reference range due to change in reagent. COMPREHENSIVE METABOLIC [id number] 08:22:00* Test Item Value Reference Range Comments SODIUM (test code=NA) 140 mmol/L 136-145 POTASSIUM (test code=K) 4.2 mmol/L 3.5-5.1 CHLORIDE (test code=CL) 110.0 mmol/L 98-107 CARBON DIOXIDE (test code=CO2) mmol/L 21-32 ANION GAP (test code=GAP) 10-20 GLUCOSE (test code=GLU) mg/dL 74-106 BLOOD UREA NITROGEN (test code=BUN) mg/dL 7-18 GLOMERULAR FILTRATION RATE (test code=GFR) mL/min >=60 CREATININE (test code=CREAT) mg/dL 0.55-1.02 BUN/CREATININE RATIO (test code=BUN/CREA) 10-20 TOTAL PROTEIN (test code=PROT) gram/dL 6.4-8.2 ALBUMIN (test code=ALB) g/dL 3.4-5.0 GLOBULIN (test code=GLOB) gram/dL 2.7-4.2 ALBUMIN/GLOBULIN RATIO (test code=A/G) 0.75-1.50 CALCIUM (test code=CA) mg/dL 8.5-10.1 BILIRUBIN TOTAL (test code=BILT) mg/dL 0.0-1.0 SGOT/AST (test code=AST) IUnit/L 15-37 SGPT/ALT (test code=ALT) IUnit/L 12-78 ALKALINE PHOSPHATASE TOTAL (test code=ALKP) IUnit/L 45-117 [id number] 20:16:00* Test Item Value Reference Range Comments GLUBED (test code=GLUBED) 107 mg/dL 74-106 Performed by certified power generating plant operator at [facility] [id number] 16:22:00* Test Item Value Reference Range Comments GLUBED (test code=GLUBED) 136 mg/dL 74-106 Performed by certified power generating plant operator at [facility] URINALYSIS [id number] 07:28:00* Test Item Value Reference Range Comments UA COLOR (test code=COLU) STRAW YELLOW UA APPEARANCE (test code=APPU) CLEAR CLEAR UA GLUCOSE DIPSTICK (test code=DGLUU) NEGATIVE mg/dL NEGATIVE UA BILIRUBIN DIPSTICK (test code=BILU) NEGATIVE mg/dL NEGATIVE UA KETONE DIPSTICK (test code=KETU) NEGATIVE mg/dL NEGATIVE UA SPECIFIC GRAVITY (test code=SGU) 1.005 1.001-1.035 UA BLOOD DIPSTICK (test code=LACEY) Negative mg/dL NEGATIVE UA PH DIPSTICK (test code=PEGGY) 7.0 5.0-8.0 UA PROTEIN DIPSTICK (test code=PROU) NEGATIVE mg/dL NEGATIVE UA UROBILINIOGEN DIPSTICK (test code=URO) NEGATIVE mg/dL NEGATIVE UA NITRITE DIPSTICK (test code=DOMENICA) NEGATIVE NEGATIVE UA LEUKOCYTE ESTERASE W REFLEX (test code=LEUUR) NEGATIVE [place]/uL NEGATIVE UA WBC (test code=WBCU) 0-5 per HPF 0-5 UA RBC (test code=RBCU) 0-2 #/HPF 0-5 Urine Source? Clean CatchDRUGS OF ABUSE SCREEN [id number] 07:28:00* Test Item Value Reference Range Comments URN COCAINE (test code=COCAURN) NEGATIVE <300 ng/mL URN CANNABINOIDS (test code=CANNABURN) NEGATIVE <50 ng/mL URN AMPHETAMINE (test code=AMPHETURN) NEGATIVE <1000 ng/mL URN BARBITURATE (test code=BARBITURN) POSITIVE <200 ng/mL This test provides only a preliminary test result. A morespecific alternate chemical method must be used in order toobtain a confirmed analytical result. Gas chromatography/mass spectrometry (GC/MS) is thepreferred confirmatory method. Other chemical confirmationmethods are available. Clinical consideration and professional judgment should be applied to any drug of abusetest result, particularly when preliminary positive resultsare used.Unconfirmed screening results must not be used fornon-medical purposes (e.g., employment testing, legaltesting). URN BENZODIAZEPINE (test code=BENZOURN) POSITIVE <200 ng/mL This test provides only a preliminary test result. A morespecific alternate chemical method must be used in order toobtain a confirmed analytical result. Gas chromatography/mass spectrometry (GC/MS) is thepreferred confirmatory method. Other chemical confirmationmethods are available. Clinical consideration and professional judgment should be applied to any drug of abusetest result, particularly when preliminary positive resultsare used.Unconfirmed screening results must not be used fornon-medical purposes (e.g., employment testing, legaltesting). URN OPIATES (test code=OPIATURN) POSITIVE <300 ng/mL This test provides only a preliminary test result. A morespecific alternate chemical method must be used in order toobtain a confirmed analytical result. Gas chromatography/mass spectrometry (GC/MS) is thepreferred confirmatory method. Other chemical confirmationmethods are available. Clinical consideration and professional judgment should be applied to any drug of abusetest result, particularly when preliminary positive resultsare used.Unconfirmed screening results must not be used fornon-medical purposes (e.g., employment testing, legaltesting). URN PHENCYCLIDINE (PCP) (test code=PHENCURN) NEGATIVE <25 ng/mL URN METHADONE (test code=METHAURN) NEGATIVE <300 ng/mL Urine Source? Clean CatchBASIC METABOLIC [id number] 07:19:00* Test Item Value Reference Range Comments SODIUM (test code=NA) 138 mmol/L 136-145 POTASSIUM (test code=K) 3.3 mmol/L 3.5-5.1 CHLORIDE (test code=CL) 108.0 mmol/L 98-107 CARBON DIOXIDE (test code=CO2) 23.0 mmol/L 21-32 ANION GAP (test code=GAP) 10.3 10-20 GLUCOSE (test code=GLU) 210 mg/dL 74-106 BLOOD UREA NITROGEN (test code=BUN) 6 mg/dL 7-18 GLOMERULAR FILTRATION RATE (test code=GFR) 56 mL/min >=60 Estimated GFR by using Modified MDRD formula.Chronic kidney disease is defined as either kidney damageor GFR <60 mL/min/1.73 m2 for >3 months. CREATININE (test code=CREAT) 1.00 mg/dL 0.55-1.02 Note change in reference range due to change in reagent. BUN/CREATININE RATIO (test code=BUN/CREA) 6.0 10-20 CALCIUM (test code=CA) 8.8 mg/dL 8.5-10.1 HEPATIC FUNCTION [id number] 07:19:00* Test Item Value Reference Range Comments TOTAL PROTEIN (test code=PROT) 8.4 gram/dL 6.4-8.2 ALBUMIN (test code=ALB) 3.7 g/dL 3.4-5.0 GLOBULIN (test code=GLOB) 4.7 gram/dL 2.7-4.2 ALBUMIN/GLOBULIN RATIO (test code=A/G) 0.8 0.75-1.50 BILIRUBIN TOTAL (test code=BILT) 0.70 mg/dL 0.0-1.0 BILIRUBIN DIRECT (test code=BILD) 0.16 mg/dL 0.0-0.20 SGOT/AST (test code=AST) 33 IUnit/L 15-37 SGPT/ALT (test code=ALT) 21 IUnit/L 12-78 ALKALINE PHOSPHATASE TOTAL (test code=ALKP) 111 IUnit/L 45-117 Note change in reference range due to change in reagent. [id number] 07:19:00* Test Item Value Reference Range Comments LIPASE (test code=LIP) 259 U/L 73.0-393.0 [id number] 07:19:00* Test Item Value Reference Range Comments TROPONIN-I (test code=TROPI) <0.015 ng/mL 0-0.045 BASIC METABOLIC [id number] 07:04:00* Test Item Value Reference Range Comments SODIUM (test code=NA) 138 mmol/L 136-145 POTASSIUM (test code=K) 3.3 mmol/L 3.5-5.1 CHLORIDE (test code=CL) 108.0 mmol/L 98-107 CARBON DIOXIDE (test code=CO2) mmol/L 21-32 ANION GAP (test code=GAP) 10-20 GLUCOSE (test code=GLU) mg/dL 74-106 BLOOD UREA NITROGEN (test code=BUN) mg/dL 7-18 GLOMERULAR FILTRATION RATE (test code=GFR) mL/min >=60 CREATININE (test code=CREAT) mg/dL 0.55-1.02 BUN/CREATININE RATIO (test code=BUN/CREA) 10-20 CALCIUM (test code=CA) mg/dL 8.5-10.1 HEPATIC FUNCTION [id number] 07:04:00* Test Item Value Reference Range Comments TOTAL PROTEIN (test code=PROT) gram/dL 6.4-8.2 ALBUMIN (test code=ALB) g/dL 3.4-5.0 GLOBULIN (test code=GLOB) gram/dL 2.7-4.2 ALBUMIN/GLOBULIN RATIO (test code=A/G) 0.75-1.50 BILIRUBIN TOTAL (test code=BILT) mg/dL 0.0-1.0 BILIRUBIN DIRECT (test code=BILD) mg/dL 0.0-0.20 SGOT/AST (test code=AST) IUnit/L 15-37 SGPT/ALT (test code=ALT) IUnit/L 12-78 ALKALINE PHOSPHATASE TOTAL (test code=ALKP) IUnit/L 45-117 [id number] 07:04:00* Test Item Value Reference Range Comments LIPASE (test code=LIP) U/L 73.0-393.0 [id number] 07:04:00* Test Item Value Reference Range Comments TROPONIN-I (test code=TROPI) ng/mL 0-0.045 CBC W/O [id number] 07:01:00* Test Item Value Reference Range Comments WHITE BLOOD CELL (test code=WBC) 9.6 K/mm3 4.5-12.5 RED BLOOD CELL (test code=RBC) 4.62 mill/mm3 3.7-5.2 HEMOGLOBIN (test code=HGB) 12.7 gram/dL 11.5-15.5 HEMATOCRIT (test code=HCT) 41.8 % 36.0-46.0 MEAN CELL VOLUME (test code=MCV) 90.5 fL 80-98 MEAN CELL HGB (test code=MCH) 27.5 picogram 27.0-33.0 MEAN CELL HGB CONCETRATION (test code=MCHC) 30.4 gram/dL 33.0-36.0 RED CELL DISTRIBUTION WIDTH (test code=RDW) 15.1 % 11.6-16.2 PLATELET COUNT (test code=PLT) 173 K/mm3 150-450 MEAN PLATELET VOLUME (test code=MPV) 10.6 fL 6.7-11.0 URINALYSIS [id number] 06:59:00* Test Item Value Reference Range Comments UA COLOR (test code=COLU) STRAW YELLOW UA APPEARANCE (test code=APPU) CLEAR CLEAR UA GLUCOSE DIPSTICK (test code=DGLUU) NEGATIVE mg/dL NEGATIVE UA BILIRUBIN DIPSTICK (test code=BILU) NEGATIVE mg/dL NEGATIVE UA KETONE DIPSTICK (test code=KETU) NEGATIVE mg/dL NEGATIVE UA SPECIFIC GRAVITY (test code=SGU) 1.005 1.001-1.035 UA BLOOD DIPSTICK (test code=LACEY) Negative mg/dL NEGATIVE UA PH DIPSTICK (test code=PEGGY) 7.0 5.0-8.0 UA PROTEIN DIPSTICK (test code=PROU) NEGATIVE mg/dL NEGATIVE UA UROBILINIOGEN DIPSTICK (test code=URO) NEGATIVE mg/dL NEGATIVE UA NITRITE DIPSTICK (test code=DOMENICA) NEGATIVE NEGATIVE UA LEUKOCYTE ESTERASE W REFLEX (test code=LEUUR) NEGATIVE [place]/uL NEGATIVE UA WBC (test code=WBCU) 0-5 per HPF 0-5 UA RBC (test code=RBCU) 0-2 #/HPF 0-5 Urine Source? Clean CatchDRUGS OF ABUSE SCREEN [id number] 06:59:00* Test Item Value Reference Range Comments URN COCAINE (test code=COCAURN) <300 ng/mL URN CANNABINOIDS (test code=CANNABURN) <50 ng/mL URN AMPHETAMINE (test code=AMPHETURN) <1000 ng/mL URN BARBITURATE (test code=BARBITURN) <200 ng/mL URN BENZODIAZEPINE (test code=BENZOURN) <200 ng/mL URN OPIATES (test code=OPIATURN) <300 ng/mL URN PHENCYCLIDINE (PCP) (test code=PHENCURN) <25 ng/mL URN METHADONE (test code=METHAURN) <300 ng/mL Urine Source? Clean CatchURINALYSIS [id number] 06:57:00* Test Item Value Reference Range Comments UA COLOR (test code=COLU) STRAW YELLOW UA APPEARANCE (test code=APPU) CLEAR CLEAR UA GLUCOSE DIPSTICK (test code=DGLUU) NEGATIVE mg/dL NEGATIVE UA BILIRUBIN DIPSTICK (test code=BILU) NEGATIVE mg/dL NEGATIVE UA KETONE DIPSTICK (test code=KETU) NEGATIVE mg/dL NEGATIVE UA SPECIFIC GRAVITY (test code=SGU) 1.005 1.001-1.035 UA BLOOD DIPSTICK (test code=LACEY) Negative mg/dL NEGATIVE UA PH DIPSTICK (test code=PEGGY) 7.0 5.0-8.0 UA PROTEIN DIPSTICK (test code=PROU) NEGATIVE mg/dL NEGATIVE UA UROBILINIOGEN DIPSTICK (test code=URO) NEGATIVE mg/dL NEGATIVE UA NITRITE DIPSTICK (test code=DOMENICA) NEGATIVE NEGATIVE UA LEUKOCYTE ESTERASE W REFLEX (test code=LEUUR) NEGATIVE [place]/uL NEGATIVE UA WBC (test code=WBCU) per HPF 0-5 Urine Source? Clean CatchDRUGS OF ABUSE SCREEN [id number] 06:57:00* Test Item Value Reference Range Comments URN COCAINE (test code=COCAURN) <300 ng/mL URN CANNABINOIDS (test code=CANNABURN) <50 ng/mL URN AMPHETAMINE (test code=AMPHETURN) <1000 ng/mL URN BARBITURATE (test code=BARBITURN) <200 ng/mL URN BENZODIAZEPINE (test code=BENZOURN) <200 ng/mL URN OPIATES (test code=OPIATURN) <300 ng/mL URN PHENCYCLIDINE (PCP) (test code=PHENCURN) <25 ng/mL URN METHADONE (test code=METHAURN) <300 ng/mL Urine Source? Clean Catch
[2019-01-21 10:19] LABS: BILIRUBIN,URINE NEGATIVE (NEGATIVE); KETONES,URINE NEGATIVE (NEGATIVE); LEUKOCYTE ESTERASE ,URINE NEGATIVE (NEGATIVE); NITRITE,URINE NEGATIVE (NEGATIVE); PROTEIN,URINE DIPSTICK NEGATIVE (NEGATIVE); URINE UROBILINOGEN 0.2 mg/dL (0.2 - 1)
[2019-01-21 10:46] LABS: BACTERIA,URINE FEW /HPF; CLARITY,URINE CLEAR (CLEAR); COLOR,URINE YELLOW (YELLOW); EPITHELIAL CELLS,URINE FEW /LPF; RBC,URINE 0-5 /HPF (0-5); WBC,URINE (MAN) 0-5 /HPF (0-5)
--- NOTE | 2019-01-21 11:28 | NUR ---
NOTIFIED LAB FOR BLOOD DRAW, MULTIPLE UNSUCSESSFUL ATTEMPTS, SPOKE WITH MARIELLE.
[2019-01-21 11:53] LABS: BASOPHILS # (AUTO) 0.1 (0.0-0.1); BASOPHILS % 0.8 % (0.0-1.0); EOSINOPHILS # (AUTO) 0.1 (0.0-0.4); EOSINOPHILS % 0.8 % (0.0-6.0); HEMATOCRIT 38.6 % (34.2-44.1); HEMOGLOBIN 12.8 g/dL (12.0-16.0); LYMPHOCYTES # (AUTO) 2.5 (1.0-3.2); LYMPHOCYTES % 28.6 % (18.0-39.1); MEAN CORPUSCULAR HGB CONC 33.2 g/dL (31-35); MEAN CORPUSCULAR VOLUME 87.5 fL (81-99); MONOCYTES # (AUTO) 0.6 (0.2-0.8); MONOCYTES % 6.4 % (4.4-11.3); NEUTROPHILS # (AUTO) 5.6 (2.1-6.9); NEUTROPHILS % 63.2 % (38.7-80.0); PLATELET COUNT 230 x10e3/uL (140-360); RED BLOOD COUNT 4.41 x10e6/uL (3.6-5.1); RED CELL DISTRIBUTION WIDTH 14.8 % (11.7-14.4)
[2019-01-21] MEDS: ACETAMINOPHEN 325 MG SUPP PR STA ×2 (11:59→13:52)
[2019-01-21 12:16] LABS: ALBUMIN 3.4 g/dL (3.5-5.0); ALBUMIN/GLOBULIN RATIO 0.8 (0.8-2.0); ANION GAP 13.2 mmol/L (8-16); CALCIUM 9.7 mg/dL (8.4-10.2); POTASSIUM 4.2 mmol/L (3.5-5.1)
[2019-01-21 12:23] LABS: CREATINE KINASE MB 0.9 ng/mL (0-5.0)
--- NOTE | 2019-01-21 13:31 | Diagnostic Imaging Report ---
Exam: Abdominal film Clinical History: Right-sided abdominal pain Comparison: None. DISCUSSION: The bowel gas pattern shows no dilated, air-filled loops of bowel. Gas and fecal material are noted throughout the large bowel. No mass effect or organomegaly. No abnormal calcifications. Regional skeletal structures are intact with degenerative disc changes of the lumbar spine. IMPRESSION: Nonobstructive bowel gas pattern. Signed by: Dr. Jj Brasher M.D. on 01/21/2019 1:28 PM
[2019-01-21] MEDS ORDERED: HYDROCODONE/APAP 5MG-325MG TAB PO ONE (15:45)
[2019-01-21] MEDS ORDERED: HYDROCODONE/APAP 7.5MG-325MG 1 EA TAB PO ONE (16:30)
--- NOTE | 2019-01-21 17:15 | Diagnostic Imaging Report ---
EXAMINATION: CT of the abdomen and pelvis without contrast. TECHNIQUE: Spiral CT images of the abdomen and pelvis were performed from the lung bases to the lesser trochanters. No intravenous contrast was given per referring physician request. Oral contrast was administered. Coronal and sagittal reformatted images were obtained. COMPARISON: CT abdomen and pelvis 08/13/2015 CLINICAL HISTORY:Abdominal pain DISCUSSION: ABSENCE OF INTRAVENOUS CONTRAST DECREASES SENSITIVITY FOR DETECTION OF FOCAL LESIONS AND VASCULAR PATHOLOGY. ABDOMEN/PELVIS: LOWER THORAX: 3 mm groundglass nodule right lower lobe unchanged. HEPATOBILIARY:Nodular hepatic contour compatible with cirrhosis. No focal lesion on this unenhanced examination. Gallbladder has been removed. SPLEEN: No splenomegaly. PANCREAS: No focal masses or ductal dilatation. ADRENALS: No adrenal nodules. KIDNEYS/URETERS: Malrotated left kidney. Upper pole cyst unchanged. No hydronephrosis, calculi, or solid mass lesion. PELVIC ORGANS/BLADDER: The urinary bladder is unremarkable. Uterus is not identified and has presumably been removed. No adnexal mass. PERITONEUM/RETROPERITONEUM: No ascites. No pneumoperitoneum. LYMPH NODES: No pelvic sidewall, retroperitoneal, or mesenteric lymphadenopathy. VESSELS: Limited evaluation without intravenous contrast. Atherosclerotic calcification of the abdominal aorta without aneurysmal dilatation. Splenorenal shunt vein is suboptimally visualized without intravenous contrast. GI TRACT: The majority of the large bowel is collapsed and poorly evaluated. There are a few sigmoid diverticula without evidence of diverticulitis. The appendix is not definitively identified. No right lower quadrant inflammatory change. No small bowel dilatation to suggest obstruction. BONES AND SOFT TISSUES: No osseous destructive lesions. No focal soft tissue abnormalities. IMPRESSION: No acute intra-abdominal or pelvic CT abnormalities on this unenhanced examination. 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 Sigmoid diverticulosis without findings of diverticulitis. Signed by: Dr. Jj Brasher M.D. on 01/21/2019 5:11 PM
[2019-01-21 17:46] VITALS: BP 162/60
== END 2019-01-21 17:55 | disposition home or self-care (01) ==
LOC: ER 09:16
DX: R10.13 Epigastric pain (principal); R10.84 Generalized abdominal pain
CPT/HCPCS: 36415; 74018; 74176; 80053; 81001; 82550; 82553; 83690; 84484; 85025; 99284